=== PATIENT | female | born 1985 | race Caucasian/White ===

== ENCOUNTER 2021-11-02 09:31 | Outpatient (REF) | payer OTHER, SELFPAY ==
--- NOTE | ~2021-11-02 | XR_ITS ---
EXAMINATION: XR SHOULDER, RIGHT CLINICAL INFORMATION: Right shoulder pain. COMPARISON: None TECHNIQUE: Three views of the right shoulder. FINDINGS: A subtle 4 mm focus of calcification is suspected in the rotator cuff near the supraspinatus tendon insertion on the greater tuberosity. No fracture. Glenohumeral and acromioclavicular alignment is anatomic with normal joint space. XR/XR shoulder RT min 2V IMPRESSION: An ill-defined 4 mm focus of subtle calcification within the supraspinatus tendon, most consistent with calcific tendinitis. Otherwise normal radiographs of the right shoulder.
== END 2021-11-02 09:32 | disposition home or self-care (01) ==
LOC: HO.HOSX 09:31
PROVIDERS: Visit Provider Physician Assistant
DX: M75.21 Bicipital tendinitis, right shoulder (principal); M75.41 Impingement syndrome of right shoulder
CPT/HCPCS: 73030; 99202

== ENCOUNTER → 2021-11-04 14:34 | Outpatient (BNVA) | payer OTHER, SELFPAY | PROVIDERS: PCP Student in an Organized Health Care Education/Training Program; Visit Provider Physician Assistant | DX: M75.41 Impingement syndrome of right shoulder (principal); M75.21 Bicipital tendinitis, right shoulder | CPT/HCPCS: 20610; 99212; J1040 ==

== ENCOUNTER → 2021-12-02 15:02 | Outpatient (BNVA) | payer OTHER, SELFPAY | PROVIDERS: PCP Student in an Organized Health Care Education/Training Program; Visit Provider Internal Medicine | DX: Z13.79 Encounter for other screening for genetic and chromosomal anomalies (principal) | CPT/HCPCS: 99213 ==

== ENCOUNTER 2021-12-29 13:00 | Outpatient (RCR) | payer OTHER, SELFPAY ==
--- NOTE | 2021-09-30 13:01 | MHC.OT.OEV ---
[address] [phone] F: [phone] Occupational Therapy Evaluation Diagnosis: Right lower arm pain Date of Onset: Date of Surgery: Attending Provider: Dr Adams Prescribed Treatment: Eval and Treat MD Follow Up Appointment: History of Current Condition: Pt reports onset for the past two years, after second and returning to work she feels tightness in dorsal forearm, digits and upper back/shoulder. She takes frequent breaks during the day and unable to get through tyoing full note. She is using more verbal dictation but still needs to click through computer. Significant Medical History: Hx of biceps tendinitis that was treated last year Precautions/Contraindications: Patient Goals: Hand Dominance: Right Observations: QuickDASH Score: Prior Level of Function and Occupation Self Care, Employment, Leisure: Living Situation, Family and/or Social Support: Lives w/ and two small children (2 and 4) Current Level of Function and Occupation Self Care, Employment, Leisure: Unable to exercise/lift weights for the past 6 months Sleep: Some difficulty, she prefers to sleep on right side and wakes up w/ pain Driving: Avoiding using right hand w/ driving Vision: Balance: Pain Assessment Pain Score: 4 Pain Scale Used: Numeric (0 - 10) Pain Location and Description: Deep ache in dorsal forearm, increases w/ use Ache in upper back/shoulder - trap region Aggravating Factors: Typing, exerise Alleviating Factors: Motrin Skin and Soft Tissue Assessment Skin and Soft Tissue: Comments: Nerve assessment Ulnar Nerve: Median Nerve: Radial Nerve: Right Impaired Comments: R 4/5 wrist ext Sensory Assessment Temperature: WNL Light Touch: WNL Proprioception: WNL Vibration: Comments: Edema Assessment Upper Extremity: WNL Lower Extremity: Comments: Dexterity Assessment Dexterity: WNL Comments: Special Tests Comments: Tenderness to palpate upper trap, supraspinatus and scalenes AROM(PROM) Strength Cervical Cervical Flexion: Cervical Extension: Cervical Lateral Flexion: Cervical Rotation: Comments: WFL Shoulder Flexion: Extension: Abduction: Internal Rotation: External Rotation: Comments: WFL Flexion: Extension: Abduction: Internal Rotation: External Rotation: Comments: WFL *hx of biceps tendintis w/ good recovery last year Elbow Flexion: Extension: Pronation: Supination: Comments: WFL Flexion: Extension: Pronation: Supination: Comments: WFL Wrist Flexion: Extension: Ulnar Deviation: Radial Deviation: Comments: WFL Flexion: Extension: R 4/5 Ulnar Deviation: Radial Deviation: Comments: Thumb Thumb CMC Flexion: Thumb MCP Flexion: Thumb IP Flexion: Radial Abduction: Palmar Abduction: [place] ([place]ji 0-10): Comments: WFL Digits Index MCP: PIP: DIP: Long MCP: PIP: DIP: Ring MCP: PIP: DIP: Small MCP: PIP: DIP: Comments: WFL Gross Grasp: Lateral Pinch: Two-Point Pinch: Three-Jaw Riccardo: Comments: Patient Education Primary Language: Rw[place]an Knife Sharpener Required: No Current Knowledge: Understands information with skills for self-management Teaching Method: Demonstration Handouts Verbal Education Needs Identified on Evaluation: Disease Information Equipment Use Exercise Pain How did patient/family demonstrate learning? Patient demonstrates Patient verbalizes Barriers to Learning: None Readiness for Learning: Accepting Who was educated? Patient Comments: Plan of Care Assessment: Gail is a 36 yo right hand dominant female presenting w/ persistent right dorsal forearm pain/fatigue and tenderness in right upper back. She has had more difficulty w/ daily activities including typing, mouse use, driving, and has been unable to participate in typical exercise/weight-lifting routine. She fatigues easily at work and takes frequent rest breaks, but ache worsens throughout the day. On assessment, she has has weakness in wrist and digit extensors w/ tenderness to palpate over dorsal forearm, specifically over dorsal wad and radial tunnel. she has trigger points palpable in scalenes, upper trap and supraspinatus. We have fit w/ custom wrist orthosis for nighttime wear to rest wrist extensors and discusses HEP for avelina scap strengthening and pec stretching. She will benefit from cont'd OT srvices to address these issues w/ optimal goal of pain free use of RUE and return to full activity participation. STG Duration: 3 weeks Short Term Goals: Ind w/ orthosis wear Ind w/ HEP Pt to report use of heat and ice as appropriate for muscle relaxation and pain management Pt to report tolerating typing/mousing for >30 min for documentation at work Pt to report ease of upper back and right forearm pain to <2/10 after days work LTG Duration: Chcf Goals: Same as above Frequency and Duration: The patient will be seen 2x/wk for 4 weeks Treatment Plan: Therapeutic Exercise Therapeutic Activity Home Exercise Program Splinting Patient Education ADL Training Ultrasound MHP Soft Tissue Mobilization Kinesiotaping nighttime resting orthosis Electronically Signed By: Ale Pinto OTR/Vivian CHT Reviewed/agree with student documentation: Therapist: Please sign and return to therapist, Thank you for your referral.
--- NOTE | 2021-12-29 13:56 | MHC.OT.DC ---
[address] [phone] F: [phone] Occupational Therapy Discharge Note Provider: Vance Adams Diagnosis: Right lower arm pain Date of Evaluation: 09/30/21 Date of Discharge: 12/29/21 Treatments to Date: 7 Discharge Status: Achieved Goals Independent with HEP Discharge Summary: Gail was originally referred to OT for right forearm pain and decreased endurance for work tasks. She now reports overall decreased pain w/ work activities and good tolerance w/ typing. Currently pain free in right forearm, but still reporting tightness/discomfort in upper trap and lower scap. Good follow through w/ HEP and doing more strengthening in home. She would ultimately benefit from physically therapy services to address cont'd back pain and trigger points as well as core weakness. Electronically Signed By: SURJIT Gibbs/Vivian DYKEST Reviewed/agree with student documentation: Therapist: Please Sign and return to therapist, thank you for your referral.
== END 2021-12-29 13:58 | disposition home or self-care (01) ==
LOC: HO.OT 13:00
PROVIDERS: Visit Provider Internal Medicine
DX: M79.601 Pain in right arm (principal)
CPT/HCPCS: 29125; 97035; 97110; 97140; 97165; 97760

== ENCOUNTER → 2022-01-19 11:23 | Outpatient (BNVA) | payer OTHER, SELFPAY | PROVIDERS: PCP Student in an Organized Health Care Education/Training Program; Visit Provider Internal Medicine | DX: Z13.89 Encounter for screening for other disorder (principal) | CPT/HCPCS: 99213 ==

== ENCOUNTER → 2022-02-24 15:10 | Outpatient (BNVA) | payer OTHER, SELFPAY | PROVIDERS: PCP Student in an Organized Health Care Education/Training Program; Visit Provider Internal Medicine | DX: Z13.89 Encounter for screening for other disorder (principal) | CPT/HCPCS: 99213 ==

== ENCOUNTER 2022-05-05 15:00 | Outpatient (RCR) | payer OTHER, SELFPAY ==
--- NOTE | 2022-02-10 09:21 | MHC.PT.EP ---
[facility] [place] Office [place] [facility] [place] Office [address] Nilesh Ambrosio [address] [phone] F: [phone] F: [phone] F: [phone] F: [phone] Physical Therapy Plan of Care Date of Evaluation: Date of Surgery: Diagnosis: R shoulder biceps tendonitis, calcific tendonitis supraspinatus, impingement Assessment: Patient is pleasant 36 yr old female referred to PT by Dr. Vance Adams with Dx of bicep tendonitis/calcific tendonitis supraspinatus, impingement. PT Dx is consistent with MD Dx. She presents with impairments of pain, limited AROM, weakness and muscle imbalances of shoulder girdle. Her functional limitations include overhead lifting with any load, pain with bench press, reaching behind back to put on bra, unable to run, increased computer work/typing. Patient will benefit from skilled PT to address aforementioned impairments and functional limitations to meet established goals. Frequency and Duration: The patient will be seen 1-2x/week for 4 weeks Short Term Goals: 2 weeks Patient demonstrates consistency and independence with HEP to self manage symptoms. Patient presents with increased R shoulder ER 80 degrees to reach behind back to don/doff bra. [facility] Goals: 4 weeks Patient presents with increased R shoulder flexion 180 degrees without pain for overhead reaching with 3# for high shelves. Patient presents with increased R shoulder flexion 5/5 to be able to return to PLOF gym routine with free weights without impingement. Treatment Plan: Modalities to reduce pain, spasms and effusion. Manual therapy to restore motion and function. Therapeutic exercise to improve strength and flexibility. Neuromuscular re-education for posture and balance. Therapeutic activities to return to functional activities of daily living. Electronically signed by: Kati Bateman, PT, DPT Please sign and return to therapist. Thank you for your referral.
--- NOTE | 2022-05-18 17:18 | MHC.PT.DC ---
[facility] [place] Office [place] Office [place] Office [address] Nilesh Ambrosio [address] [phone] F: [phone] F: [phone] F: [phone] F: [phone] Physical Therapy Discharge Report Diagnosis: R shoulder biceps tendonitis, calcific tendonitis supraspinatus, impingement Date of Surgery: Date of Evaluation: 02/09/22 Date of Discharge: 05/05/22 Treatments to Date: 8 Cancellations to Date: No Shows to Date: Discharge Status: Achieved Goals Improved Function Independent with HEP Discharge Summary: Pt independent w/HEP Significant increase in SPADI reported Discharged to indpendent HEP. Electronically signed by: Kati Bateman, PT, DPT Please sign and return to therapist. Thank you for your referral.
== END 2022-05-18 17:20 | disposition home or self-care (01) ==
LOC: HO.PT 15:00
PROVIDERS: Visit Provider Internal Medicine
DX: M75.31 Calcific tendinitis of right shoulder (principal); M25.811 Other specified joint disorders, right shoulder
CPT/HCPCS: 97035; 97110; 97140; 97161; 97530

== ENCOUNTER → 2023-06-15 14:29 | Outpatient (BNVA) | payer OTHER, SELFPAY | PROVIDERS: PCP Student in an Organized Health Care Education/Training Program; Visit Provider Physician Assistant Medical | DX: Z13.89 Encounter for screening for other disorder (principal) | CPT/HCPCS: 99203 ==

== ENCOUNTER 2023-07-04 12:30 | Outpatient (AMB) | payer OTHER, SELFPAY ==
--- NOTE | 2023-07-04 12:33 | A.OFFVIS_ITS ---
Vital Signs 07/04/23 12:35 Height 5 ft 5 in Weight 150 lb BMI 25.0 Intake Visit Reasons: OV- Right shoulder pain - WC Intake Note: Gail a 38 year old female who presents today for a follow up of right shoulder pain, last injection 11/04/21. Patient reports last injection provided her with some relief however her pain has been getting worse. She is unsure if she would like to repeat injection. Allergies No Known Allergies Allergy (Verified 07/04/23 12:37) HPI HPI OV- Right shoulder pain - WC: Details: 38-year-old female who returns to the office today for a follow-up of right shoulder pain. She currently states she has worsening pain as well as instability in her shoulder that is aggravated with overhead reaching and doing planks. Her pain has been affecting her work and [employer]. She has tried physical therapy and injection in the past. She had her last injection on 11/04/21 which provided her mild relief. 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 Tenderness over the bicipital groove and along the deltoid region of the shoulder. FF to 175, ER to 90, IR to S1. 5/5 RTC strength, Positive linares, + obriens, cross body abduction. NVI. Assessment & Plan Assessment & Plan (1) Biceps tendinitis of right shoulder: Code(s): M75.21 - Bicipital tendinitis, right shoulder Category: Medical (2) Impingement syndrome of right shoulder: Code(s): M75.41 - Impingement syndrome of right shoulder Category: Medical Plan MRI arthrogram of the right shoulder was ordered to further evaluate extent of the RTC and labrum. She will continue working with physical therapy and once the MRI is complete, she will see me back to discuss the results. Orders: Orders MR shoulder RT w con 07/04/23 M75.21 - Bicipital tendinitis, right shoulder, M75.41 - Impingement syndrome of right shoulder Patient Instructions: Scribed for Emanuel Mac PA-C, by Calvin Cervantes durable medical equipment repairer, on 07/04/2023 at 12:45 PM EST.? I, Emanuel Mac PA-C, have personally reviewed and agree with the information entered by the scribe. Coding Level of Care Code Est Pt Level 3 (41695) Diagnoses Biceps tendinitis of right shoulder M75.21 Impingement syndrome of right shoulder M75.41
[2023-07-04 12:35] VITALS: BMI 25.0
== END 2023-07-04 12:59 | disposition home or self-care (01) ==
PROVIDERS: PCP Student in an Organized Health Care Education/Training Program; Visit Provider Physician Assistant
DX: M75.21 Bicipital tendinitis, right shoulder (principal); M75.41 Impingement syndrome of right shoulder
CPT/HCPCS: 99213

== ENCOUNTER → 2023-07-04 12:30 | Outpatient (BNVA) | payer OTHER, SELFPAY | PROVIDERS: PCP Student in an Organized Health Care Education/Training Program; Visit Provider Physician Assistant | DX: M75.21 Bicipital tendinitis, right shoulder (principal); M75.41 Impingement syndrome of right shoulder | CPT/HCPCS: 99212 ==

== ENCOUNTER 2023-07-26 13:10 | Outpatient (REF) | payer OTHER, SELFPAY ==
--- NOTE | ~2023-07-26 | FL_ITS ---
FLUOROSCOPIC GUIDED RIGHT SHOULDER ARTHROGRAM INDICATIONS: Right shoulder pain. Bicipital tendinitis, impingement syndrome. Intra-articular gadolinium injection is needed prior to MRI. PROCEDURE: Risks and benefits and possible complications were discussed with the patient and the consent form was signed. The patient was placed supine on the fluoroscopy table. The right shoulder was prepped and draped in normal sterile fashion. 1% buffered lidocaine was used for anesthesia. A 22-gauge spinal needle was used to access the shoulder joint. Intra-articular position of the needle within the shoulder joint was verified using 3 cc of Omnipaque 300. A total of 10 mL of gadolinium/saline (1:200) contrast mixture was then injected into the shoulder joint. The needle was then removed and a Band-Aid was applied to the injection site. The patient tolerated the procedure well and was sent to MRI. There were no immediate complications. Post contrast instillation intra-articularly, image demonstrates no evidence of full-thickness rotator cuff tear, no significant arthritic changes, and no narrowing of the subacromial space. Minimal calcification of the supraspinatus tendon at the insertional aspect. FL/FL arthrogram shoulder RT IMPRESSION: -Successful fluoroscopic guided intra-articular instillation of dilute gadolinium into the right shoulder joint. Patient will undergo subsequent right shoulder MRI. -Subtle calcific tendinopathy of the supraspinatus tendon. The procedure was performed by rere Green PA-C, and directly supervised by Dr. Garrett.
--- NOTE | ~2023-07-26 | MR_ITS ---
EXAMINATION: MR SHOULDER WITH CONTRAST, RIGHT CLINICAL INFORMATION: Right shoulder and neck pain. Impingement. COMPARISON: Right shoulder fluoroscopic arthrography done earlier the same day and right shoulder radiographs dated 11/02/2021. TECHNIQUE: MRI of the shoulder was performed following the intra-articular administration of a dilute gadolinium-containing solution (arthrogram) on a high-field scanner. FINDINGS: ROTATOR CUFF: Focal somewhat low T1/low T2 signal within the anterior aspect of the supraspinatus tendon insertion measuring up to 0.6 cm consistent with faint calcific tendinitis seen on the prior radiographs. No rotator cuff tendon tear. No muscle atrophy or fatty infiltration. BICEPS: Intact. CORACOACROMIAL ARCH: The undersurface of the acromion is minimally curved with no subacromial spur. Mild acromioclavicular arthrosis. Trace fluid within subacromial subdeltoid bursa, consistent with minimal bursitis. Subacromial space: 0.6 cm. Subcoracoid space: 1.3 cm. LABRUM/CAPSULE: No labral tear. Intact joint capsule. GLENOHUMERAL JOINT/MARROW: Unremarkable. MR/MR shoulder RT w con IMPRESSION: 1. Mild supraspinatus calcific tendinitis. No rotator cuff tendon tear. 2. Mild acromioclavicular arthrosis. 3. Minimal subacromial subdeltoid bursitis. 4. No labral tear.
[2023-07-26] MEDS: gadobutroL 2 ML VIAL IVPUSH (15:09)
== END 2023-07-26 13:11 | disposition home or self-care (01) ==
LOC: HO.XRAY 13:10
PROVIDERS: PCP Student in an Organized Health Care Education/Training Program; Visit Provider Physician Assistant Medical
DX: M75.41 Impingement syndrome of right shoulder (principal); M75.21 Bicipital tendinitis, right shoulder
CPT/HCPCS: 23350; 73040; 73222; A9585

== ENCOUNTER → 2023-07-26 13:30 | Outpatient (BNV) | payer OTHER, SELFPAY | PROVIDERS: PCP Student in an Organized Health Care Education/Training Program; Visit Provider Physician Assistant Surgical | DX: M75.41 Impingement syndrome of right shoulder (principal); M75.21 Bicipital tendinitis, right shoulder | CPT/HCPCS: 23350; 73040 ==

== ENCOUNTER → 2023-08-16 15:13 | Outpatient (BNVA) | payer OTHER, SELFPAY | PROVIDERS: PCP Student in an Organized Health Care Education/Training Program; Visit Provider Physician Assistant Medical | DX: Z13.89 Encounter for screening for other disorder (principal) | CPT/HCPCS: 99213 ==

== ENCOUNTER 2023-08-31 15:00 | Outpatient (RCR) | payer OTHER, SELFPAY ==
--- NOTE | 2023-06-29 16:12 | MHC.PT.EP ---
[facility] [place] Office [place] Office [place] Office [address] Nilesh Ambrosio [address] [phone] F: [phone] F: [phone] F: [phone] F: [phone] Physical Therapy Plan of Care Date of Evaluation: 06/29/23 Date of Surgery: N/A Diagnosis: right shoulder injury (RL) Assessment: pt is a 38 y/o female presenting to physical therapy w/ referring diagnosis of right shoulder injury. I am questioning the relationship between her upper trap and forearm/wrist symptoms in regards to a cervical/peripheral neuropathy vs. extensor tendinitis. I feel her catching is related to the calcific tendinitis that was found on her xray. Impairments include pain, decreased range of motion, decreased strength, impaired functional mobility, impaired postural awareness, and altered ambulation mechanics. pt is a good candidate for skilled PT due to age, potential remediation of impairments, typical disease/condition progression and prognosis, comorbidities, and motivation. pt would benefit from skilled PT intervention to provide a tailored strengthening and stretching exercise program, functional training, gait training, postural re-training, neuromuscular re-education, modalities as needed for pain, equipment safety demonstration. Frequency and Duration: The patient will be seen 1x/wk for 6 wks Short Term Goals: pt will be I w/ HEP to promote self-management of condition. pt will demo proper sitting posture w/ neutral neck and shoulder position w/ work-related tasks. Long-Term Goals: pt will report a statistically significant improvement in self-reported outcome measure, SPADI, to promote return to PLOF. pt will report <2/10 R forearm pain w/ desk work to promote pain-limited return to work-related tasks. Treatment Plan: Modalities to reduce pain, spasms and effusion. Manual therapy to restore motion and function. Therapeutic exercise to improve strength and flexibility. Neuromuscular re-education for posture and balance. Therapeutic activities to return to functional activities of daily living. Electronically signed by: Cortney Sanchez PT, DPT Please sign and return to therapist. Thank you for your referral.
--- NOTE | 2023-10-02 15:40 | MHC.PT.DC ---
[facility] [place] [facility] [place] [facility] [place] [facility] [address] Nilesh Ambrosio [address] [phone] F: [phone] F: [phone] F: [phone] F: [phone] Physical Therapy Discharge Report Diagnosis: right shoulder injury (RL) Date of Surgery: N/A Date of Evaluation: 06/29/23 Date of Discharge: 10/02/23 Treatments to Date: 7 Cancellations to Date: 3 No Shows to Date: 0 Discharge Status: Independent with HEP Insurance Declined Tx Discharge Summary: Per last treatment note on 08/31/23: pt stated she received a letter from [employer] that her claim is now considered closed as her imaging showed degenerative changes indicating this is apparently not a work-related incident. We reviewed her HEP to ensure she did not have any further questions at this time. She has a complete handout and stated she has a green band at home. Overall, her symptoms are roughly the same. I do wish; however, we were able to do twice a week w/ more consistency of appts. There were times she would go a week or two at a time w/o an appt. At this time, I will check w/ our insurance reps to see if her claim is truly closed and will D/C if it is. The patient has not reached out to our department in approximately one month. She is now officially discharged from this PT plan of care. Electronically signed by: Cortney Sanchez PT, DPT Please sign and return to therapist. Thank you for your referral.
== END 2023-10-02 15:41 | disposition home or self-care (01) ==
LOC: HO.PT 15:00
PROVIDERS: PCP Student in an Organized Health Care Education/Training Program; Visit Provider Physician Assistant Medical
DX: M25.811 Other specified joint disorders, right shoulder (principal)
CPT/HCPCS: 97033; 97035; 97110; 97140; 97161

== ENCOUNTER 2023-09-20 08:27 | Outpatient (AMB) | payer OTHER, SELFPAY ==
--- NOTE | 2023-09-20 08:31 | A.OFFVIS_ITS ---
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 Pt was referred by the work connection. Pt states she has discomfort, burning, and tightness in her shoulder and down her arm. Pt denies any numbness or tingling. Pt states if she lifts her arm a certain way she gets pain in the front of her shoulder as well. Pt denies any previous surgeries but did have a cortisone injection in her shoulder about 2 years ago with relief. 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 Repetitive work injury since 2 years ago. Seen by Orthopedics in 2021 and received shoulder injection. Recurrence this year. Seen again by Orthopedics 06/2023. MRI done. Work Connection referred patient to Physiatry to evaluate any cervical component or need for EMG. No falls or MVAs. No past sports injury in last 2 years. She was active with weight training, cross fit, for more than 4-6 years ago, thought she has not done these for upper body in at least 3 years. She does feel the biceps proximally, sharp pain, with exercise and shoulder ROM. Some pain in right scapular, deeper in that area. For work perspective, she types all day long, clicking, she feels tightness, burning on right shoulder or upper arm. Noted also right wrist pain recently, but without any numbness. Last shoulder injection 2 years ago 2021, subacromial, by Cynthia CARLISLE. Last PT 3 weeks ago, pending further evaluation. Continues with RTC exercises taught by PT, but has not noted much improvement. Change in ergonomics have helped much. No past neck injury. Was taking meloxicam daily. Ices. 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 Patient was appropriately conversant and oriented. Good historian. MSK: Inspection reveals appropriate head and neck positioning. Although she tends to lean towards the right side slightly. Tightness and trigger points noted in right upper trapezius. Tight also in left upper trapezius. No trigger points in rhomboids. No tenderness to palpation in cervical or thoracic paraspinals, facets or spinous processes. Negative scapular winging. Cervical ROM was full. Spurling's sign negative. Bilateral shoulder, elbow and wrist ROM WNL. No ligamentous laxity or crepitance. No increased effusion. Positive right Jiang sign. Positive right empty can sign. Negative right speed's test. Negative carpal compression. Strength is 5/5 in all muscle groups tested. No increased tone noted. Neurological: Neurologic examination of the upper and lower extremities was nonfocal with intact sensation, muscle stretch reflexes and without focal motor deficits . Duran?s negative bilaterally. Babinski was down going bilaterally. Clonus was negative. Gait is non-antalgic without loss of balance. Results Reviewed Results Reviewed: Ordering Physician: Cynthia Mac PA-C Date of Service: 07/26/23 Procedure(s): MR shoulder RT w con Accession Number(s): [id number] cc: Cynthia Mac PA-C; Priti Antonio MD~ EXAMINATION: MR SHOULDER WITH CONTRAST, RIGHT CLINICAL INFORMATION: Right shoulder and neck pain. Impingement. COMPARISON: Right shoulder fluoroscopic arthrography done earlier the same day and right shoulder radiographs dated 11/02/2021. TECHNIQUE: MRI of the shoulder was performed following the intra-articular administration of a dilute gadolinium-containing solution (arthrogram) on a high-field scanner. FINDINGS: ROTATOR CUFF: Focal somewhat low T1/low T2 signal within the anterior aspect of the supraspinatus tendon insertion measuring up to 0.6 cm consistent with faint calcific tendinitis seen on the prior radiographs. No rotator cuff tendon tear. No muscle atrophy or fatty infiltration. BICEPS: Intact. CORACOACROMIAL ARCH: The undersurface of the acromion is minimally curved with no subacromial spur. Mild acromioclavicular arthrosis. Trace fluid within subacromial subdeltoid bursa, consistent with minimal bursitis. Subacromial space: 0.6 cm. Subcoracoid space: 1.3 cm. LABRUM/CAPSULE: No labral tear. Intact joint capsule. GLENOHUMERAL JOINT/MARROW: Unremarkable. MR/MR shoulder RT w con IMPRESSION: 1. Mild supraspinatus calcific tendinitis. No rotator cuff tendon tear. 2. Mild acromioclavicular arthrosis. 3. Minimal subacromial subdeltoid bursitis. 4. No labral tear. Ordering Physician: Talita Powers PA-C Date of Service: 07/26/23 Procedure(s): FL arthrogram shoulder RT Accession Number(s): [id number] cc: Talita Powers PA-C; Priti Antonio MD~ FLUOROSCOPIC GUIDED RIGHT SHOULDER ARTHROGRAM INDICATIONS: Right shoulder pain. Bicipital tendinitis, impingement syndrome. Intra-articular gadolinium injection is needed prior to MRI. PROCEDURE: Risks and benefits and possible complications were discussed with the patient and the consent form was signed. The patient was placed supine on the fluoroscopy table. The right shoulder was prepped and draped in normal sterile fashion. 1% buffered lidocaine was used for anesthesia. A 22-gauge spinal needle was used to access the shoulder joint. Intra-articular position of the needle within the shoulder joint was verified using 3 cc of Omnipaque 300. A total of 10 mL of gadolinium/saline (1:200) contrast mixture was then injected into the shoulder joint. The needle was then removed and a Band-Aid was applied to the injection site. The patient tolerated the procedure well and was sent to MRI. There were no immediate complications. Post contrast instillation intra-articularly, image demonstrates no evidence of full-thickness rotator cuff tear, no significant arthritic changes, and no narrowing of the subacromial space. Minimal calcification of the supraspinatus tendon at the insertional aspect. FL/FL arthrogram shoulder RT IMPRESSION: -Successful fluoroscopic guided intra-articular instillation of dilute gadolinium into the right shoulder joint. Patient will undergo subsequent right shoulder MRI. -Subtle calcific tendinopathy of the supraspinatus tendon. The procedure was performed by shoulder Juan Miguel Green PA-C, and directly supervised by Dr. Garrett. Ordering Physician: Cynthia Mac PA-C Date of Service: 11/02/21 Procedure(s): XR shoulder RT min 2V Accession Number(s): [id number] cc: Cynthia Mac PA-C~ EXAMINATION: XR SHOULDER, RIGHT CLINICAL INFORMATION: Right shoulder pain. COMPARISON: None TECHNIQUE: Three views of the right shoulder. FINDINGS: A subtle 4 mm focus of calcification is suspected in the rotator cuff near the supraspinatus tendon insertion on the greater tuberosity. No fracture. Glenohumeral and acromioclavicular alignment is anatomic with normal joint space. XR/XR shoulder RT min 2V IMPRESSION: An ill-defined 4 mm focus of subtle calcification within the supraspinatus tendon, most consistent with calcific tendinitis. Otherwise normal radiographs of the right shoulder. I reviewed records from the following: Orthopedics Assessment & Plan Assessment & Plan (1) Impingement syndrome of right shoulder: Code(s): M75.41 - Impingement syndrome of right shoulder Category: Medical (2) Calcific tendinitis of right shoulder: Code(s): M75.31 - Calcific tendinitis of right shoulder Category: Medical (3) Myofascial pain: Code(s): M79.18 - Myalgia, other site Category: Medical Plan I agree with orthopedics with diagnosis of right shoulder Impingement syndrome, most likely from calcific tendinopathy on supraspinatus. There is no sign currently for rotator cuff tear and imaging did not show any tears. With secondary myofascial pain affecting trapezius. Do not see any signs of cervical radiculopathy or Carpal Tunnel Syndrome. No indication at this time for cervical imaging or EMG. Would recommend addressing the shoulder impingement by performing steroid injection. Recommended also trial of trigger point injections to trapezius. Patient is agreeable and we will schedule. I do not see need for returning her back to PT as I believe patient is able to independently do exercises and stretching at home. Discussed that she may need modifications to her previous weightlifting routine. Would not push through pain. Discussed with Cynthia CARLISLE about surgery for AC, and it is not off the table and a possibility if interventions mentioned above fail. At that point, I would probably refer her back to Dr. Patterson. Assessment and plan discussed with patient, and patient was agreeable. All questions were answered thoroughly. Shana Andres MD, ADRIANNA Board Certified, [place] [employer] Physical Medicine and Rehabilitation (ABPMR) Board Certified, [place] [employer] Board of Electrodiagnostic Medicine (ABEM) Coding Level of Care Code New Pt Level 4 (50880) Diagnoses Impingement syndrome of right shoulder M75.41 Calcific tendinitis of right shoulder M75.31 Myofascial pain M79.18
== END 2023-09-20 09:07 | disposition home or self-care (01) ==
LOC: HO.HOS 08:27
PROVIDERS: PCP Student in an Organized Health Care Education/Training Program; Visit Provider Physical Medicine & Rehabilitation
DX: M75.41 Impingement syndrome of right shoulder (principal); M75.31 Calcific tendinitis of right shoulder; M79.18 Myalgia, other site
CPT/HCPCS: 99204

== ENCOUNTER → 2023-09-20 08:27 | Outpatient (BNVA) | payer OTHER, SELFPAY | PROVIDERS: PCP Student in an Organized Health Care Education/Training Program; Visit Provider Physical Medicine & Rehabilitation | DX: M75.41 Impingement syndrome of right shoulder (principal); M75.31 Calcific tendinitis of right shoulder; M79.18 Myalgia, other site | CPT/HCPCS: 99202 ==

== ENCOUNTER 2023-09-26 10:18 | Outpatient (AMB) | payer OTHER, SELFPAY ==
--- NOTE | 2023-09-26 10:35 | A.OFFVIS_ITS ---
Intake Visit Reasons: IN- Tigger point injection #1 Intake Note: Gail is a 38 year old female who presents today for a right trigger point and shoulder injection. 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 The distal, lateral, and posterior edges of the right acromion are palpated. Area is cleansed with betadine solution. A 27 gauge needle is inserted just inferior to the posterolateral edge of the acromion. The needle is directed toward the opposite chest. A solution containing [40 mg] Kenalog and [3 ml] of 2% Lidocaine is injected. Subsequently, using a different gauge 27 needle, trigger points on right upper trapezius were dry needled, and injected 1 mL of 2% lidocaine on each side. Two trigger points, total 2 mL. Patient felt lightheaded at the end of the procedure. Patient was laid down and observe for few minutes. She started to feel better. Post-injection instructions given. 90787-Fcllkwe Point Injection 3 or more All charges added?: Procedure code (CPT) selection complete Assessment & Plan Assessment & Plan (1) Myofascial pain: Code(s): M79.18 - Myalgia, other site Category: Medical (2) Calcific tendinitis of right shoulder: Code(s): M75.31 - Calcific tendinitis of right shoulder Category: Medical (3) Impingement syndrome of right shoulder: Code(s): M75.41 - Impingement syndrome of right shoulder Category: Medical Plan Patient felt lightheaded at the end of the procedure. Patient was laid down and observed for few minutes. She started to feel better. Post-injection instructions given. Assessment and plan discussed with patient, and patient was agreeable. All questions were answered thoroughly. Next trigger point injection is in 2 weeks. Shana Andres MD, ADRIANNA Board Certified, [place] Board of Physical Medicine and Rehabilitation (ABPMR) Board Certified, [place] Board of Electrodiagnostic Medicine (ABEM) Orders: Orders AMB Joint Injection/Aspiration Today M75.31 - Calcific tendinitis of right shoulder, M75.41 - Impingement syndrome of right shoulder, M79.18 - Myalgia, other site AMB Trigger Point Injection Today M75.31 - Calcific tendinitis of right shoulder, M75.41 - Impingement syndrome of right shoulder, M79.18 - Myalgia, other site Coding Level of Care Code Procedure Only Diagnoses Myofascial pain M79.18 Calcific tendinitis of right shoulder M75.31 Impingement syndrome of right shoulder M75.41 CPT Codes Coding - 59499 Large joint: 35423 - Large joint ([id number]) Therapeutic Injection - Ther Injection 2: 54322-Earvtek Point Injection 3 or more ([id number])
== END 2023-09-26 11:05 | disposition home or self-care (01) ==
PROVIDERS: PCP Student in an Organized Health Care Education/Training Program; Visit Provider Physical Medicine & Rehabilitation
DX: M75.31 Calcific tendinitis of right shoulder (principal); M75.41 Impingement syndrome of right shoulder; M79.18 Myalgia, other site
CPT/HCPCS: 20552

== ENCOUNTER → 2023-09-26 10:18 | Outpatient (BNVA) | payer OTHER, SELFPAY | PROVIDERS: PCP Student in an Organized Health Care Education/Training Program; Visit Provider Physical Medicine & Rehabilitation | DX: M79.18 Myalgia, other site (principal); M75.31 Calcific tendinitis of right shoulder; M75.41 Impingement syndrome of right shoulder | CPT/HCPCS: 20552; J3301 ==

== ENCOUNTER 2023-10-24 08:40 | Outpatient (AMB) | payer OTHER, SELFPAY ==
--- NOTE | 2023-10-24 09:22 | A.OFFVIS_ITS ---
Intake Visit Reasons: Inj-Trigger point injection #2 Intake Note: Gail is a 38 year old female who presents today for Right Shoulder Trigger Point Injection #2 Allergies No Known Allergies Allergy (Verified 10/24/23 09:22) Medication List - Last Reconciled 10/24/23 by Shana Andres MD meloxicam 7.5 mg PO DAILY naproxen 500 mg PO BID HPI Comments Details: Some improvement on right shoulder after steroid injection, with less sharp pain. 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 Conset obtained. Two trigger points palpated on right upper trapezius. 1 ml of 2% Lidocaine injected in each site, total of 2 mL. Patient tolerated procedure well. Post-injection instructions given. 10799-Uzxsfyv Point Injection 1 or 2 sites All charges added?: Procedure code (CPT) selection complete Assessment & Plan Assessment & Plan (1) Myofascial pain: Code(s): M79.18 - Myalgia, other site Category: Medical Plan Tolerated procedure well. Assessment and plan discussed with patient, and patient was agreeable. All questions were answered thoroughly. Shana Andres MD, ADRIANNA Board Certified, [place] Board [employer] Physical Medicine and Rehabilitation (ABPMR) Board Certified, [place] Board [employer] Electrodiagnostic Medicine (ABEM) Orders: Orders AMB Trigger Point Injection Today M79.18 - Myalgia, other site Coding Level of Care Code Procedure Only Diagnoses Myofascial pain M79.18 CPT Codes Therapeutic Injection - Ther Injection 1: 49645-Hopzxzf Point Injection 1 or 2 sites ([id number])
== END 2023-10-24 08:57 | disposition home or self-care (01) ==
PROVIDERS: PCP Student in an Organized Health Care Education/Training Program; Visit Provider Physical Medicine & Rehabilitation
DX: M25.511 Pain in right shoulder (principal); M79.18 Myalgia, other site
CPT/HCPCS: 20552

== ENCOUNTER → 2023-10-24 08:40 | Outpatient (BNVA) | payer OTHER, SELFPAY | PROVIDERS: PCP Student in an Organized Health Care Education/Training Program; Visit Provider Physical Medicine & Rehabilitation | DX: M79.18 Myalgia, other site (principal) | CPT/HCPCS: 20552 ==

== ENCOUNTER 2023-11-15 10:51 | Outpatient (AMB) | payer OTHER, SELFPAY ==
--- NOTE | 2023-11-15 10:56 | MHC.OFFVIS ---
Vital Signs 11/15/23 11:04 Height 5 ft 5 in Weight 150 lb BMI 25.0 Intake Visit Reasons: trigger point injection #3 Intake Note: Gail is a 38 year old female who presents to the office today for her trigger point injection #3. Patient reports no concerns today. She is unsure if the last injection done 10/24/23, provided relief. 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 Conset obtained. Trigger points palpated on right upper trapezius. 1 ml of 2% Lidocaine injected in each site, total of 2 mL. Patient tolerated procedure well. Post-injection instructions given. 31276-Ozhhapa Point Injection 1 or 2 sites All charges added?: Procedure code (CPT) selection complete Assessment & Plan Assessment & Plan (1) Myofascial pain: Code(s): M79.18 - Myalgia, other site Category: Medical (2) Lateral epicondylitis, right elbow: Code(s): M77.11 - Lateral epicondylitis, right elbow Category: Medical Plan Tolerated procedure well. She complained of tenderness over right lateral elbow. Exam shows possible beginning lateral epicondylitis/tennis elbow. Provided with counterforce brace and instructions given. Follow up in 2 months to re-evaluate. Assessment and plan discussed with patient, and patient was agreeable. All questions were answered thoroughly. Shana Andres MD, ADRIANNA Board Certified, [place] Board of Physical Medicine and Rehabilitation (ABPMR) Board Certified, [place] Board of Electrodiagnostic Medicine (ABEM) Orders: Orders AMB Trigger Point Injection Today M79.18 - Myalgia, other site Coding Level of Care Code Procedure Only Diagnoses Myofascial pain M79.18 Lateral epicondylitis, right elbow M77.11 CPT Codes Therapeutic Injection - Ther Injection 1: 83157-Qzdbonw Point Injection 1 or 2 sites ([id number])
[2023-11-15 11:04] VITALS: BMI 25.0
== END 2023-11-15 11:13 | disposition home or self-care (01) ==
PROVIDERS: PCP Student in an Organized Health Care Education/Training Program; Visit Provider Physical Medicine & Rehabilitation
DX: M25.511 Pain in right shoulder (principal); M79.18 Myalgia, other site; M77.11 Lateral epicondylitis, right elbow
CPT/HCPCS: 20552

== ENCOUNTER → 2023-11-15 10:51 | Outpatient (BNVA) | payer OTHER, SELFPAY | PROVIDERS: PCP Student in an Organized Health Care Education/Training Program; Visit Provider Physical Medicine & Rehabilitation | DX: M79.18 Myalgia, other site (principal); M77.11 Lateral epicondylitis, right elbow | CPT/HCPCS: 20552 ==